=== PATIENT | female | born 1955 | race Caucasian/White ===

== ENCOUNTER 2017-11-20 12:56 | Outpatient (CLI) | payer BC ==
[2017-11-20 13:47] LABS: #Eosinphils 0.1 thou/uL (0.0-0.7); #Lymphocytes 1.8 thou/uL (1.20-3.40); #Monocytes 0.4 thou/uL (0.11-0.59); #Neutrophils 2.8 thou/uL (1.40-6.50); %Basophils 0.5 % (0.0-1.0); %Eosinophils 1.8 % (0.0-10.0); %Lymphocytes 34.5 % (21.0-51.0); %Neutrophils 55.3 % (42.0-75.0); Hemoglobin 13.1 g/dL (12.0-16.0); Mean Corpuscular HGB CONC 34.7 g/dL (32.0-36.0); Mean Corpuscular Hemoglobin 31.4 pg (27.0-31.0); Mean Corpuscular Volume 90.4 fl (81.0-99.0); Mean Platelet Volume 7.2 fL (7.4-10.4); Platelet Count 191 thou/uL (130-400); RBC Distribution Width 10.7 % (11.5-14.5); Red Blood Cell (RBC) Count 4.18 mill/uL (4.20-5.40); White Blood Cell (WBC) Count 5.1 thou/uL (4.8-10.8)
[2017-11-20 14:11] LABS: Anion Gap 7 mmol/L (10-20); BUN (Urea Nitrogen) 6 mg/dL (9.8-20.1); Calc. Creatinine Clearance 0 mL/min (70-130); Carbon Dioxide 28 mmol/L (22-29); Chloride 101 mmol/L (98-107); Estimated GFR-MDRD Greater than 90; Glucose 82 mg/dL (70-105); Potassium 4.3 mmol/L (3.5-5.1); Sodium 132 mmol/L (136-145)
--- NOTE | 2017-11-20 20:58 | EKG ---
Test Reason : Blood Pressure : / mmHG Vent. Rate : 063 BPM Atrial Rate : 063 BPM P-R Int : 130 ms QRS Dur : 098 ms QT Int : 392 ms P-R-T Axes : -11 075 052 degrees QTc Int : 401 ms Normal sinus rhythm Normal ECG When compared with ECG of 08-NOV-2013 10:28, No significant change was found Confirmed by MARGO CHRISTIAN, SBehzad ([id number]) on 11/20/2017 8:58:16 PM Referred By: AMELIE Confirmed By:DR. Caio ARAGON MD
== END 2017-11-20 12:57 | disposition home or self-care (01) ==
LOC: LABBT 12:56
PROVIDERS: ATTEND Specialist
DX: Z01.818 Encounter for other preprocedural examination (principal); K40.90 Unilateral inguinal hernia, without obstruction or gangrene, not specified as recurrent; L72.3 Sebaceous cyst
CPT/HCPCS: 80048; 85025; 93005; 93010

== ENCOUNTER 2017-11-24 08:50 | Day surgery (SDC) | payer BC ==
[2017-11-20 13:05] VITALS: BMI 18.6
--- NOTE | 2017-11-20 14:02 | HP ---
HISTORY OF PRESENT ILLNESS: Johnny Lr is a 62-year-old female, retired [employer] employ ee who has a trip to [employer] leaving on this month. She has noted a bulge in her left groin for some time. She is able to push it back in with a pop. This is not bothersome to her until the last week when she has been having some tugging discomfort. She recently had a CAT scan obtained revealin g a left inguinal hernia. She in addition has a sebaceous cyst about 2.5 cm in left trapezius area. Plan is mesh repair of her left inguinal hernia and excision of her left trapezius shoulder area lavell aceous cyst under anesthesia as an outpatient. Risk of infection, bleeding, reoperation and use of m esh discussed. She consents. We will plan this when she returns from her [employer] trip. The patient is followed by Dr. Diaz. She has severe osteoporosis that has limited her physical activities wh en she had lower thoracic spine compression fracture. She mostly walks. She is very thin and active . ALLERGIES: SULFA. TOBACCO: None. ALCOHOL: Rarely. MEDICATIONS: Thyroid replacement, gabapentin, vitamins. ALLERGIES: SULFA and FORTEO. PAST SURGICAL HISTORY: Hysterectomy without oophorectomy in 1983. She is up to date on her colonosc opies. She had cardiac catheterization in [address] Blum that was unremarkable. REVIEW OF SYSTEMS: Ten point noncontributory. PHYSICAL EXAMINATION: VITAL SIGNS: 148/79, 57, 98.1 degrees. HEAD, EARS, EYES, NOSE, AND THROAT: Unremarkable. LUNGS: Clear to auscultation. CARDIAC: Regular rate and rhythm without murmur or gallop. ABDOMEN: Soft, nontender, no masses. EXTREMITIES: Unremarkable. On standing, she has left inguinal hernia that is reducible when supine. She has 2.5 to 3 cm sebaceous cyst. Left medial trapezius area, is mobile, smooth. ASSESSMENT AND PLAN: 1. Left inguinal hernia. Plan repair using mesh. Risk and benefits explained, consents discussed a nd questions answered. 2. Sebaceous cyst, plan excision. 3. Osteoporosis, history of compression fracture while exercising. 4. Allergies to SULFA.
[2017-11-24] MEDS ORDERED: Ketorolac Tromethamine 30 MG/ML VIAL ONE (09:48)
[2017-11-24] MEDS ORDERED: CEFAZOLIN/Water 2 GM/20 ML SYRINGE ONE (09:48)
[2017-11-24] MEDS ORDERED: Fentanyl 100 MCG/2 ML VIAL ONE ×2 (09:58→12:58)
[2017-11-24] MEDS ORDERED: Ondansetron HCl/PF 4 MG/2 ML Vial ONE ×2 (09:58→13:43)
[2017-11-24] MEDS ORDERED: Bupivacaine HCl 0.5%/Epinephrine 1:200,000/PF 30 ml Vial ONE (09:59)
[2017-11-24] MEDS ORDERED: Bupivacaine/Epinephrine 0.25% 30 ML VIAL ONE (10:11)
[2017-11-24] MEDS ORDERED: Lidocaine 2% 10 ML INJ ONE (10:11)
[2017-11-24] MEDS ORDERED: Scopolamine 1.5 mg/72 hour Patch ONE (10:16)
[2017-11-24] MEDS ORDERED: Lidocaine 1% PF 5 ML VIAL ONE (13:43)
[2017-11-24] MEDS ORDERED: PROPOFOL 200 MG/20 ML VIAL ONE (13:43)
[2017-11-24] MEDS ORDERED: PHENYLEPHRINE-NS 100 MCG/ML 10 ML SYRINGE ONE (13:43)
[2017-11-24] MEDS ORDERED: ePHEDrine/0.9% NaCl/PF SYRINGE 50 mg/10 ml ONE (13:43)
[2017-11-24] MEDS ORDERED: Glycopyrrolate 0.2 MG/ML 5 ML SYRINGE ONE (13:43)
--- NOTE | 2017-11-24 21:01 | OP ---
PREOPERATIVE DIAGNOSIS: Left inguinal hernia. Left shoulder trapezius area sebaceous cyst. POSTOPERATIVE DIAGNOSIS: Left inguinal hernia. Left shoulder trapezius area sebaceous cyst. PROCEDURE PERFORMED: Robotic repair of left inguinal hernia using mesh, Bard 3DMax large. Excision of left trapezius sebaceous cyst, layer closure, 2.5 cm in closure incision. SURGEON: Artemio Rodney M.D. ANESTHESIA: General. Local 0.25% Marcaine with epinephrine 60 mL mixed with 2% Xylocaine, 10 mL, 45 mL volume mixture used. FINDINGS: Indirect left inguinal hernia. PROCEDURE IN DETAIL: The patient was taken to the operating room where under general anesthesia, Fol ey catheter placed at the beginning of the procedure, removed at the end. Abdomen and left trapezius prepared with ChloraPrep, draped in routine fashion. Local anesthetic infiltrated into the skin and subcutaneous tissue about the operative sites. Supraumbilical incision made. Pneumoperitoneum to 1 5 mmHg obtained with the Veress needle, replacing with an 11-port and video laparoscope inserted. Le ft lateral and right lateral incision was made on the horizontal plane. An 8 mm ports placed under l aparoscopic visualization. Robotic arms were docked and prepared and robotic inguinal hernia repair, left, undertaken. The peritoneum was scored approximately 5 cm above the indirect hernia defect vis ualized robotically. The peritoneum was scored and developed peritoneal plane, developing a peritone al flap medially, then laterally and a large hernia sac identified, dissected free, and from the defe ct inferiorly. Inferior epigastrics were kept free of harm as were the lateral nerves. Once the spa ce had been dissected free, the Bard 3DMax mesh placed properly oriented suturing the mesh to Kyle' s ligament with 3-0 Vicryl robotically and then properly positioned, the mesh was secured to the tiss ue just left lateral to the inferior epigastrics. Once this was secured, mesh was probably positione d. Peritoneum closed with continuous suture of 2-0 Stratafix. Endoscopically, the 11-mm port site c losed with GraNee needle 0 Vicryl . All instruments removed and all skin incisions removed. He rnia repair was inspected and noted to be properly positioned and closed. Sebaceous cyst was excised from the slightly anterior left trapezius area. Transverse skin incision was made elliptically on subcutaneous tissue excising the cyst closing the subcutaneous tissues with 3-0 Monocryl, skin with subdermal 4-0 Monocryl and DermaGlue applied.
--- NOTE | 2017-12-07 13:51 | PQF ---
[facility] [place] POST DISCHARGE CLINICAL DOCUMENTATION IMPROVEMENT CLARIFICATION FORM Todays Date: 11/30/17 Patients Name MATTIE AVINA Admit Date 11/24/17 Disch Date 11/24/17 Accounts Receivable Collector Name Prosper Westfall Email: [email or web address] Cell: [phone] Present Clinical Indicators - Signs / Symptoms Results and Location in Medical Record [ ] Documentation of: [ ] [ ] Documentation of: [ ] [ ] Documentation of: [ ] [ ] Documentation of: [ ] [ ] Risks [ ] [ ] [ ] Treatment [ ] Excision epidermal inclusion cyst Please specify the size of excised inclusion cyst in Operative report [ ] [ ] Artemio Duong The documentation in this patients record requires clarification to ensure coding compliance and accuracy. Check the appropriate box and include in your discharge summary. [ ] [ ] [ ] [ ] Please check this box if this does not apply to this patient [ ] Unable to determine [ ] Other diagnosis: Review the following information and exercise your independent professional judgment in responding to the clarification. Based upon the clinical findings, risk factors, and treatment, please clarify if you are treating one of the above probable or suspected diagnoses. Physician Signature: Date Time ARTD
== END 2017-11-24 14:35 | disposition home or self-care (01) ==
LOC: SDC 08:50
PROVIDERS: ATTEND Specialist
PROC: 0YU64JZ Supplement Left Inguinal Region with Synthetic Substitute, Percutaneous Endoscopic Approach (ICD-10-PCS; principal; 2017-11-24)
DX: K40.90 Unilateral inguinal hernia, without obstruction or gangrene, not specified as recurrent (principal); L72.0 Epidermal cyst; M81.0 Age-related osteoporosis without current pathological fracture; E03.9 Hypothyroidism, unspecified; Z79.899 Other long term (current) drug therapy; Z88.2 Allergy status to sulfonamides; Z88.8 Allergy status to other drugs, medicaments and biological substances
CPT/HCPCS: 88304; C1781; J0131; J0670; J1885; J2001; J2405; J2704; J3010

== ENCOUNTER 2017-12-25 09:31 | Outpatient (CLI) | payer BC | END 2017-12-25 09:32 | disposition home or self-care (01) | LOC: BICMAMMO 09:31 | PROVIDERS: ATTEND Family Medicine | DX: Z12.31 Encounter for screening mammogram for malignant neoplasm of breast (principal); M81.0 Age-related osteoporosis without current pathological fracture; Z80.3 Family history of malignant neoplasm of breast | CPT/HCPCS: 77063; 77067; 77080 ==

== ENCOUNTER 2018-10-04 07:24 | Outpatient (CLI) | payer BC ==
--- NOTE | 2018-10-04 08:46 | CT ---
CT ABDOMEN AND PELVIS WITH AND WITHOUT CONTRAST: Date: 10/04/18 HISTORY: Hematuria. History of a hernia repair. COMPARISON: CT abdomen and pelvis from 02/17/17. FINDINGS: Lung bases are clear. No pericardial effusion. On the noncontrast portion of the examination, there is no nephroureterolithiasis or hydroureteroneph rosis. Mild right-sided pelviectasis. Multiple bilateral renal cysts. No solid enhancing renal mass. No abno rmal renal urothelial enhancing mass is appreciated. Incidental note is made of mild pelvic floor relaxation. Multiple small hepatic cysts are present, la rgest in hepatic segment II. Spleen is unremarkable. The main pancreatic duct is mildly prominent and it appears to drain primarily within the minor papil la, separate from the common bile duct. Gallbladder is mildly distended. No intrahepatic biliary dila tation. No dilated loops of large or small bowel. On sagittal image 43, there is a focal filling defect within the urinary bladder along its caudal mar gin, measuring 4 x 5 mm. There is no acute osseous abnormality. No suspicious osteolytic or osteoblastic lesions. Mild degener ative disc space height loss at L5-S1, likely hemangioma within the T11 vertebral body. IMPRESSION: 1. 4 x 5 mm polypoid lesion within the caudal urinary bladder wall, best seen on sagittal image 43 j ust off of midline. Direct visualization is recommended. 2. Hepatic and renal cysts. 3. No solid enhancing renal mass. 4. No hydroureteronephrosis or nephroureterolithiasis. POS: [facility]
== END 2018-10-04 07:25 | disposition home or self-care (01) ==
LOC: BICCT 07:24
PROVIDERS: ATTEND Urology
DX: R31.9 Hematuria, unspecified (principal); N28.1 Cyst of kidney, acquired; K76.89 Other specified diseases of liver; N32.9 Bladder disorder, unspecified
CPT/HCPCS: 36415; 74178; 81001; 87086

== ENCOUNTER 2018-10-11 09:18 | Outpatient (CLI) | payer BC | END 2018-10-11 09:19 | disposition home or self-care (01) | LOC: LABBT 09:18 | PROVIDERS: ATTEND Urology | DX: Z01.812 Encounter for preprocedural laboratory examination (principal); R31.9 Hematuria, unspecified; N95.2 Postmenopausal atrophic vaginitis; Z80.51 Family history of malignant neoplasm of kidney | CPT/HCPCS: 93005; 93010 ==

== ENCOUNTER 2018-10-15 05:58 | Day surgery (SDC) | payer BC ==
[2018-10-11 09:44] VITALS: BMI 19.3
[2018-10-11 11:14] LABS: Hemoglobin 13.4 g/dL (12.0-16.0); Mean Corpuscular HGB CONC 33.8 g/dL (32.0-36.0); Mean Corpuscular Volume 91.5 fL (78.0-98.0); Mean Platelet Volume 8.4 fL (7.4-10.4); Platelet Count 162 thou/uL (130-400); RBC Distribution Width 10.8 % (11.5-14.5); Red Blood Cell (RBC) Count 4.33 mill/uL (4.20-5.40); White Blood Cell (WBC) Count 3.4 thou/uL (4.8-10.8)
[2018-10-11 11:21] LABS: INR-International Normal Ratio 1.1; PTT 35.4 SEC (22.9-36.1); Prothrombin Time 14.4 SEC (12.0-14.7)
[2018-10-11 11:55] LABS: Anion Gap 12 mmol/L (10-20); BUN (Urea Nitrogen) 7 mg/dL (9.8-20.1); Calc. Creatinine Clearance 74 mL/min (70-130); Calcium 9.3 mg/dL (7.8-10.44); Carbon Dioxide 26 mmol/L (23-31); Chloride 105 mmol/L (98-107); Estimated GFR-MDRD Greater than 90; Glucose 79 mg/dL (80-115); Potassium 4.1 mmol/L (3.5-5.1); Sodium 139 mmol/L (136-145)
[2018-10-15] MEDS ORDERED: Levofloxacin 500 mg/D5W 100 ml Premix Bag ONE (06:13)
[2018-10-15] MEDS ORDERED: Iothalamate Meglumine 60% 50 ML VIAL FS ONE (06:51)
[2018-10-15] MEDS ORDERED: cefTRIAXone\\ROCEPHIN 2 GM VIAL ONE (07:13)
[2018-10-15] MEDS ORDERED: Sodium Chloride 0.9% 100 ML ONE (07:13)
[2018-10-15] MEDS ORDERED: Fentanyl 100 MCG/2 ML VIAL ONE (07:18)
[2018-10-15] MEDS ORDERED: Midazolam HCl 2 mg/2 ml Vial ONE (07:18)
[2018-10-15] MEDS ORDERED: Phenazopyridine HCl 97.5 MG TABLET ONE (08:55)
[2018-10-15] MEDS ORDERED: Oxybutynin 5 MG TAB ONE (08:55)
--- NOTE | 2018-10-15 09:01 | RAD ---
IVP: INDICATIONS: History of ureteral stents. COMPARISON: CT abdomen and pelvis with and without contrast, dated 10/04/2018. FINDINGS: The initial silk screen painter images demonstrate no suspicious calcification. The bowel gas pattern is nonobstru cted. Subsequent images demonstrate selective retrograde opacification of the right ureter and right renal pelvicalyceal system. No focal filling defects or strictures identified. Subsequent image demonstra ellie selection and retrograde opacification of the left ureter and left renal pelvis. No focal fillin g defect or strictures identified. The final image submitted demonstrates a left ureteral stent that projects in the expected position. IMPRESSION: Retrograde intravenous pyelogram evaluation with placement of a left ureteral stent. No focal fillin g defect or stricture identified. POS: [facility]
[2018-10-15] MEDS ORDERED: HYDROcodone/Acetaminophen 5/325 mg Tablet ONE (10:38)
--- NOTE | 2018-10-15 15:46 | OP ---
DATE OF PROCEDURE: 10/15/2018 PRIMARY CARE PHYSICIAN: Dr. Diaz. PREOPERATIVE DIAGNOSES: 1. A 63-year-old female with history of intermittent gross hematuria, pink- tinged. 2. CT demonstrating bladder mass, confirmed on local cystoscopy. POSTOPERATIVE DIAGNOSES: 1. A 63-year-old female with history of intermittent gross hematuria, pink- tinged. 2. CT demonstrating bladder mass, confirmed on local cystoscopy. PROCEDURES PERFORMED: Cystoscopy, bilateral retrograde pyelogram, transurethral resection of bladder tumor., Left 6 x 22 double-J ureteral stent placement ANESTHESIA: General. COMPLICATIONS: None apparent. DISPOSITION: To recovery room in stable condition. ESTIMATED BLOOD LOSS: Minimal. SPECIMEN: TUR of bladder tumor located in the left lateral wall, periureteral orifice in location. INTRAOPERATIVE FINDINGS: 1. Bilateral retrograde pyelogram demonstrating no evidence of filling defect or obstruction. 2. CT demonstrating no evidence of right hydronephrosis, however, mildly prominent right ureter, this was located on retrograde at the level of crossing of the iliacs. There was no filling defect, nor functional obstruction. There was bilateral prompt excretion of contrast noted. 3. Left lateral/periureteral orifice papillary superficial appearing tumors, surface area approximately 2-2.5 cm. INDICATIONS FOR PROCEDURE AND HISTORY: Ms. Lr is a pleasant 63-year-old female, who was referred to me for evaluation of intermittent gross hematuria. She was advised regarding CT cystoscopy, workup demonstrating left lateral superficial appearing bladder tumor. She was informed regarding TURBT. Indications for bilateral retrograde reviewed. Risks and complications including, but not limited to, bleeding, pain, infection, injury to adjacent organs, stricture formation, and ureteral, bladder, urethral injury. All questions were answered to her satisfaction and she desired to proceed. DESCRIPTION OF PROCEDURE: After an informed consent was signed, the patient was taken to the operating room, placed in the dorsal lithotomy position, where the genital area prepped and draped in the usual surgical sterile fashion. A 21- Kenyan cystoscope was passed without difficulty. Upon entering the bladder, as previously confirmed, left lateral bladder tumor was seen. This appeared superficial, papillary, sessile in nature. The tumor did encompass the left ureteral orifice , however, it not involving the ureteral orifice itself. However, it was quite close of the tumor changes. I performed a right retrograde pyelogram using 1:1 diluted contrast using a 5-Kenyan open-ended catheter. Although the CT demonstrates no evidence of hydronephrosis nor filling defect, there was mild pelviectasis. The ureter appeared to be dilated to the level of the iliacs. This was confirmed on right retrograde pyelogram. However, there was no evidence of filling defect, nor functional obstruction as there was prompt excretion of contrast from the right kidney. At this time, I did perform a left retrograde pyelogram as the tumor does encroach the left ureteral orifice and this demonstrated no evidence of filling defects or hydronephrosis, prompt excretion was noted. As the tumor does encompass the left ureteral orifice, a decision was made to place a left ureteral stent. A 0.35 Sensor wire was placed into the left kidney and a 6 x 22 double-J ureteral stent was passed without difficulty with adequate coil in the renal pelvis with redundancy in the bladder. I left the ureteral stent in situ as TUR of the bladder tumor was performed, circumscribing the ureteral orifice as the tumor encroaches the left ureteral orifice. Transurethral resection of the bladder tumor was performed with a 26-Kenyan resectoscope continuous sheath with a Gyrus bipolar. There was some resistance passing the resectoscope; however, it was passed with a visual obturator, passively dilating the urethra. We then performed the transurethral resection of bladder tumor. As the tumor burden was small, its surface area approximately 2 cm, appeared superficial, there was immediate obliteration of the tumor and the specimens were quite scant. The total surface area fulgurated about 2.5 cm.Her bladder mucosa appeared to be quite attenuated even with the initial resection. As there was risk of bladder perforation due to attenuated bladder mucosa, I did not go further in resecting as there was increased risk of bladder perforation. I did cauterize the edges of the bladder tumor margins. All visible tumors were resected and cauterized. Left ureteral stent is left in situ as the tumor was resected to the level of the ureteral orifice to minimize risk of postop hydronephrosis. The bladder was completely emptied and we passed a 20-Kenyan 3-way Oliveira catheter, 30 mL was instilled into the balloon. She tolerated the procedure well. The catheter was irrigated, demonstrating good irrigation clear. She tolerated the procedure well. She was discharged with Colace p.r.n., Omnicef until followup appointment for cysto, stent pull under local, VESIcare 5 mg, Azo p.r.n., and Morton 5/325 #30. She will follow up with me for catheter and stent removal. Job ID: [id number]
== END 2018-10-15 11:00 | disposition home or self-care (01) ==
LOC: SDC 05:58
PROVIDERS: ATTEND Urology
PROC: 0T778DZ Dilation of Left Ureter with Intraluminal Device, Via Natural or Artificial Opening Endoscopic (ICD-10-PCS; principal; 2018-10-15)
PROC: 0TBB8ZX Excision of Bladder, Via Natural or Artificial Opening Endoscopic, Diagnostic (ICD-10-PCS; principal; 2018-10-15)
DX: C67.6 Malignant neoplasm of ureteric orifice (principal); N95.2 Postmenopausal atrophic vaginitis; E03.9 Hypothyroidism, unspecified; E05.00 Thyrotoxicosis with diffuse goiter without thyrotoxic crisis or storm; M81.0 Age-related osteoporosis without current pathological fracture; F41.9 Anxiety disorder, unspecified; R05 Cough
CPT/HCPCS: 74420; 80048; 85027; 85610; 85730; 86850; 86900; 86901; 88305; C1758; C1769; J0696; J1956; J2250; J3010; J3490; Q9961

== ENCOUNTER 2018-12-26 07:52 | Outpatient (CLI) | payer BC ==
--- NOTE | 2018-12-26 08:38 | BD ---
DEXA bone density examination HISTORY: 63-year-old postmenopausal female for screening COMPARISON: None FINDINGS: L1--bone mineral density 0.655 g/sq cm; T score -3.0 L2--bone mineral density 0.673 g/sq cm; T score -3.2 L3--bone mineral density 0.588 g/sq cm; T score -4.5 L4--bone mineral density 0.571 g/sq cm; T score -4.5 Total L1-L4--bone mineral density 0.622 g/sq cm; T score -3.9 Left femoral neck--bone mineral density0.433; T score -3.7 Total proximal left femur--bone mineral density 0.574; T score -3.0 IMPRESSION: Osteoporosis of the lumbar spine and left femoral neck.
--- NOTE | 2018-12-26 08:54 | MMO ---
Bilateral MAMMO Bilat Screen [facility]. CLINICAL HISTORY: Patient is 63 years old and is seen for screening. The patient has no personal history of cancer. VIEWS: The views performed were: bilateral craniocaudal with tomosynthesis and bilateral mediolateral oblique with tomosynthesis. FILMS COMPARED: The present examination has been compared to prior imaging studies performed at [facility] on 12/18/2014, 12/18/2015, 12/19/2016 and 12/25/2017. MAMMOGRAM FINDINGS: The breasts are heterogeneously dense, which could obscure a lesion on mammography. Finding 1: There are stable focal asymmetries seen in both breasts. Finding 2: There are stable benign appearing calcifications seen in the right breast. There are no suspicious masses, suspicious calcifications, or new areas of architectural distortion. IMPRESSION: THERE IS NO MAMMOGRAPHIC EVIDENCE OF MALIGNANCY. A ROUTINE FOLLOW-UP MAMMOGRAM IN 1 YEAR IS RECOMMENDED. THE RESULTS OF THIS EXAM WERE SENT TO THE PATIENT. ACR BI-RADS Category 2 - Benign finding MAMMOGRAPHY NOTE: 1. A negative mammogram report should not delay a biopsy if a dominant of clinically suspicious mass is present. 2. Approximately 10% to 15% of breast cancers are not detected by mammography. 3. Adenosis and dense breasts may obscure an underlying neoplasm.
== END 2018-12-26 07:53 | disposition home or self-care (01) ==
LOC: BICMAMMO 07:52
PROVIDERS: ATTEND Family Medicine
DX: Z12.31 Encounter for screening mammogram for malignant neoplasm of breast (principal); M81.0 Age-related osteoporosis without current pathological fracture
CPT/HCPCS: 77063; 77067; 77080

== ENCOUNTER 2019-12-30 10:33 | Outpatient (CLI) | payer BC ==
--- NOTE | 2019-12-30 11:06 | BD ---
EXAM: DEXA bone density examination HISTORY: 64-year-old postmenopausal female for screening COMPARISON: 12/26/2018 FINDINGS: L1--bone mineral density 0.642 g/sq cm; T score -3.2 L2--bone mineral density 0.699 g/sq cm; T score -3.0 L3--bone mineral density 0.594 g/sq cm; T score -4.5 L4--bone mineral density 0.565 g/sq cm; T score -4.5 Total L1-L4--bone mineral density 0.624 g/sq cm; T score -3.8 Left femoral neck--bone mineral density0.423; T score -3.8 Total proximal left femur--bone mineral density 0.501; T score -2.6 IMPRESSION: Osteoporosis. When compared to the prior exam, the bone density in the hip has decreased approximately 12.7% and the bone density in the spine has not changed significantly.
--- NOTE | 2019-12-30 12:53 | MMO ---
Bilateral MAMMO Bilat Screen [facility]DI[facility]KKI. CLINICAL HISTORY: Patient is 64 years old and is seen for screening. The patient has no personal history of cancer. VIEWS: The views performed were: bilateral craniocaudal with tomosynthesis and bilateral mediolateral oblique with tomosynthesis. FILMS COMPARED: The present examination has been compared to prior imaging studies performed at [facility] on 12/18/2015, 12/19/2016, 12/25/2017 and 12/26/2018. This study has been interpreted with the assistance of computer-aided detection. MAMMOGRAM FINDINGS: The breasts are heterogeneously dense, which could obscure a lesion on mammography. There are no suspicious masses, suspicious calcifications, or new areas of architectural distortion. IMPRESSION: THERE IS NO MAMMOGRAPHIC EVIDENCE OF MALIGNANCY. A ROUTINE FOLLOW-UP MAMMOGRAM IN 1 YEAR IS RECOMMENDED. THE RESULTS OF THIS EXAM WERE SENT TO THE PATIENT. ACR BI-RADS Category 1 - Negative MAMMOGRAPHY NOTE: 1. A negative mammogram report should not delay a biopsy if a dominant of clinically suspicious mass is present. 2. Approximately 10% to 15% of breast cancers are not detected by mammography. 3. Adenosis and dense breasts may obscure an underlying neoplasm. Reported by: PAGE BHAGAT MD Electonically Signed: [id number]
== END 2019-12-30 10:34 | disposition home or self-care (01) ==
LOC: BICMAMMO 10:33
PROVIDERS: ATTEND Family Medicine
DX: Z12.31 Encounter for screening mammogram for malignant neoplasm of breast (principal); M81.0 Age-related osteoporosis without current pathological fracture
CPT/HCPCS: 77063; 77067; 77080

== ENCOUNTER 2021-01-05 08:59 | Outpatient (CLI) | payer BC | END 2021-01-05 09:00 | disposition home or self-care (01) | LOC: BICMAMMO 08:59 | PROVIDERS: ATTEND Family Medicine | DX: Z12.31 Encounter for screening mammogram for malignant neoplasm of breast (principal); M81.0 Age-related osteoporosis without current pathological fracture; Z80.3 Family history of malignant neoplasm of breast; Z85.51 Personal history of malignant neoplasm of bladder | CPT/HCPCS: 77063; 77067; 77080 ==

== ENCOUNTER 2022-01-06 07:53 | Outpatient (CLI) | payer BC | END 2022-01-06 07:54 | disposition home or self-care (01) | LOC: BICMAMMO 07:53 | PROVIDERS: ATTEND Internal Medicine Rheumatology | DX: Z12.31 Encounter for screening mammogram for malignant neoplasm of breast (principal); M81.0 Age-related osteoporosis without current pathological fracture; Z80.3 Family history of malignant neoplasm of breast; Z85.51 Personal history of malignant neoplasm of bladder | CPT/HCPCS: 77063; 77067; 77080 ==

== ENCOUNTER 2023-01-31 08:49 | Outpatient (CLI) | payer MEDICARE, BC | END 2023-01-31 08:50 | disposition home or self-care (01) | LOC: BICMAMMO 08:49 | PROVIDERS: ATTEND Family Medicine | DX: Z12.31 Encounter for screening mammogram for malignant neoplasm of breast (principal); M81.0 Age-related osteoporosis without current pathological fracture; Z80.3 Family history of malignant neoplasm of breast; Z85.51 Personal history of malignant neoplasm of bladder | CPT/HCPCS: 77063; 77067; 77080 ==

== ENCOUNTER 2025-02-11 09:11 | Outpatient (CLI) | payer MEDICARE | END 2025-02-11 09:12 | disposition home or self-care (01) | LOC: BICMAMMO 09:11 | PROVIDERS: ATTEND Family Medicine | DX: Z12.31 Encounter for screening mammogram for malignant neoplasm of breast (principal); M81.0 Age-related osteoporosis without current pathological fracture; Z80.3 Family history of malignant neoplasm of breast; Z85.51 Personal history of malignant neoplasm of bladder; Z79.899 Other long term (current) drug therapy | CPT/HCPCS: 77063; 77067; 77080 ==